=== PATIENT | female | born 1970 | race American Indian/Alaskan Native ===

== ENCOUNTER 2017-10-29 08:18 | Inpatient (IN) | payer OTHER ==
[2017-10-28 14:21] LABS: Basophils % (Auto) 0.8 % (0.0-1.8); Eosinophils % (Auto) 0.4 % (0.0-4.3); Hematocrit 41.6 % (30.3-42.9); Hemoglobin 13.7 gm/dl (10.1-14.3); Mean Corpuscular HGB Conc 33 % (30-34); Mean Corpuscular Hemoglobin 31 pg (28-32); Mean Corpuscular Volume 93 fl (79-97); Platelet Count 324 K/mm3 (140-440); Red Blood Count 4.46 M/mm3 (3.65-5.03); Red Cell Distribution Width 13.9 % (13.2-15.2); White Blood Count 7.9 K/mm3 (4.5-11.0)
[2017-10-29] MEDS ORDERED: NACL BACTERIOSTATIC INFILTRATI ONE (13:08)
[2017-10-29] MEDS ORDERED: VERSED IV NR (14:00)
--- NOTE | 2017-10-29 14:27 | History and Physical Report ---
History of Present Illness Date of examination: 10/29/17 Date of admission: 10/29/17 11:52 Chief complaint: My bleeding is heavy History of present illness: patient is a 46 year old G0 who presented to the office with the complaint of heavy menses during her annual exam. she was found to have a very large fibroid uterus that was confirmed on ultrasound. Patient sought definitive therapy. Past History Past Medical History: hypertension Past Surgical History: No surgical history Social history: single Family history: no significant family history Medications and Allergies Allergies Allergy/AdvReac Type Severity Reaction Status Date / Time aspirin Allergy Swelling Verified 10/22/17 15:25 Home Medications Medication Instructions Recorded Confirmed Last Taken Type No Known Home Medications [No 10/22/17 10/22/17 Unknown History Reported Home Medications] Active Meds: Active Medications Famotidine (Pepcid) 20 mg IV PREOP NR Stop: 10/29/17 23:00 Last Admin: 10/29/17 14:21 Dose: 20 mg Lactated Ringer's (Lactated Ringers) 1,000 mls @ 75 mls/hr IV DIRECT MERRITT Last Admin: 10/29/17 14:19 Dose: 75 mls/hr Midazolam HCl (Versed) 2 mg IV PREOP NR Stop: 10/29/17 23:59 Review of Systems All systems: negative - Constitutional fatigue - Breasts deferred - Gastrointestinal constipation, dyspepsia/bloating - Genitourinary Genitourinary: menorrhagia, urinary frequency, vaginal dryness Menstruation: period heavy - Psychiatric anxiety Exam Vital Signs Temp Pulse Resp BP Pulse Ox 98.3 F 77 18 151/93 100 10/29/17 12:45 10/29/17 12:45 10/29/17 12:45 10/29/17 12:45 10/29/17 12:45 - General physical appearance Positive: well developed, well nourished, no distress - Eyes Positive: PERRL, normal occular movement - ENT Positive: normal pinna, normal nares, normal mucosa, no hearing loss, no congestion - Neck Positive: no masses, no bruits, trachea midline, no venous distension - Respiratory Positive: normal expansion, normal respiratory effort, clear to auscultation - Extremities Extremities: no ischemia, pulses symmetrical, No edema - Breasts Breasts: deferred - Abdomen Abdomen: Present: soft, masses (just above the umbilicus) - Genitourinary Female Genitourinary: other (enlarged with multifibroid uterus) Results - Labs 10/28/17 13:30 Assessment and Plan 46 year old female here for supracervical dany for multifibroid uterus. Consents signed and on chart.
[2017-10-29] MEDS ORDERED: ANCEF/STERILE WATER 2 GM/20 ML 2 GM/20 ML SYRINGE IV NR (15:00)
[2017-10-29] MEDS ORDERED: LACTATED RINGERS 1,000 ML IV SCH (15:00)
[2017-10-29] MEDS ORDERED: PEPCID IV NR (15:00)
[2017-10-29] MEDS ORDERED: DIPRIVAN 10 MG/ML IV ONE (15:04)
[2017-10-29] MEDS ORDERED: DILAUDID ONE ×2 (15:04→17:52)
[2017-10-29] MEDS ORDERED: XYLOCAINE MPF 2% ONE (15:04)
[2017-10-29] MEDS ORDERED: ZEMURON IV ONE (15:05)
[2017-10-29] MEDS ORDERED: ACD-A 500 ML IV ONE (15:13)
[2017-10-29] MEDS ORDERED: METHYLENE BLUE ONE (15:13)
[2017-10-29] MEDS ORDERED: ZOFRAN ONE (16:11)
[2017-10-29] MEDS ORDERED: NACL 0.9% 100 ML ONE (16:14)
[2017-10-29] MEDS ORDERED: Vasostrict ONE (16:15)
[2017-10-29] MEDS ORDERED: NACL 0.9% IV ONE (16:18)
[2017-10-29] MEDS ORDERED: NACL 0.9% IR ONE (16:18)
[2017-10-29] MEDS ORDERED: Vasostrict IM ONE (16:18)
[2017-10-29] MEDS ORDERED: LACTATED RINGERS 1,000 ML ONE (16:32)
[2017-10-29] MEDS ORDERED: NACL 0.9% 1000 ML 2,000 ML ONE (16:39)
[2017-10-29] MEDS ORDERED: ROBINUL ONE (16:46)
[2017-10-29] MEDS ORDERED: NEOSTIGMINE ONE (16:46)
[2017-10-29] MEDS ORDERED: NEO SYNEPHRINE/NS Syringe(OR USE) IV ONE (17:00)
[2017-10-29] MEDS ORDERED: NARCAN 0.4 MG/1 ML IV PRN (17:36)
[2017-10-29] MEDS ORDERED: BENADRYL IV PRN (17:36)
[2017-10-29] MEDS ORDERED: ZOFRAN IV PRN (17:36)
[2017-10-29] MEDS ORDERED: PHENERGAN PR PRN (17:36)
--- NOTE | 2017-10-29 17:48 | Post Operative Note ---
Pre-op diagnosis: Uterine Fibroids Post-op diagnosis: same Findings: Severely enlarged multi-fibroid uterus, normal ovaries Procedure: Supracervical Hysterectomy, Abdominal approach Anesthesia: GETA Surgeon: LISA MULLER Mems Process Engineer: SUYAPA GANT Estimated blood loss: other (400) Pathology: list (uterus) Specimen disposition: to lab Condition: stable Disposition: PACU
--- NOTE | 2017-10-29 17:49 | Post Anesthesia Evaluation ---
- Post Anesthesia Evaluation Patient Participated: Yes Airway Patent: Yes Stable Respiratory Function: Yes Nausea/Vomiting: No Temp > 96.8F: Yes Pain Manageable: Yes Adequeate Hydration: Yes Anesthesia Complications: No
[2017-10-29] MEDS ORDERED: DILAUDID IV PRN (17:56)
[2017-10-29] MEDS ORDERED: NACL 0.9% 1000 ML 1,000 ML IV SCH (18:00)
[2017-10-29] MEDS ORDERED: DILAUDID PCA 6MG/30ML IV SCH (18:00)
[2017-10-29] MEDS ORDERED: TYLENOL PO PRN (20:38)
[2017-10-29] MEDS ORDERED: D5LR 1,000 ML IV SCH (20:38)
[2017-10-29] MEDS: TORADOL IV SCH (22:58)
[2017-10-29] MEDS: COLACE PO SCH (22:58)
[2017-10-30] MEDS: TORADOL IV SCH (03:34)
[2017-10-30 06:43] LABS: Hematocrit 37.5 % (30.3-42.9); Hemoglobin 12.6 gm/dl (10.1-14.3)
[2017-10-30] MEDS: PERCOCET 5/325 PO PRN ×2 (08:45→16:09)
[2017-10-30] MEDS: COLACE PO SCH ×2 (16:10→21:52)
[2017-10-30] MEDS: MILK OF MAGNESIA PO PRN (16:29)
[2017-10-30] MEDS ORDERED: AFRIN NS PRN (21:14)
[2017-10-30] MEDS: TORADOL IM SCH (21:51)
[2017-10-31] MEDS: TORADOL IM SCH ×3 (06:35→21:10)
--- NOTE | 2017-10-31 08:28 | Progress Note ---
Assessment and Plan POD 2 s/p SHAYNE Supracervical. Dong well except that patient complained of nausea after eating on yesterday. Patient was hoping to go home today so I advised patient that is she is able to eat a regular diet and keep it down as well as pass flatus that she could go on today. Subjective - Subjective Date of service: 10/31/17 Interval history: patient is a 46 year old G0 who presented to the office with the complaint of heavy menses during her annual exam. she was found to have a very large fibroid uterus that was confirmed on ultrasound. Patient sought definitive therapy. Patient reports: appetite normal, voiding normally, pain well controlled, nauseated Objective - Vital Signs Latest vital signs: Vital Signs Temp Pulse Resp BP 10/31/17 06:43 99.4 F 91 H 16 141/87 10/31/17 01:33 98.5 F 77 18 133/75 10/30/17 20:54 99.6 F 91 H 18 160/87 10/30/17 16:00 98.2 F 80 18 151/80 10/30/17 12:15 98.4 F 83 18 137/70 10/30/17 09:10 98.1 F 86 18 146/81 Intake and Output 10/30/17 10/31/17 10/31/17 22:59 06:59 14:59 Intake Total 120 220 Output Total 200 Balance 120 20 Intake: Oral 120 Intake, Free Water 220 Output: Urine 200 Void 200 Other: Total, Intake Amount 120 Total, Output Amount 200 # Voids Void 1 1 - Exam Cardiovascular: Present: Regular rate, Normal S1, Normal S2 Lungs: Present: Clear to auscultation, Normal air movement Abdomen: Present: normal appearance, soft, tenderness, normal bowel sounds Extremities: Present: normal Deep Tendon Reflex Grade: Normal +2 Incision: Present: normal, dry, intact
[2017-10-31 09:34] LABS: Hematocrit 36.7 % (30.3-42.9)
[2017-10-31] MEDS: PERCOCET 5/325 PO PRN (17:13)
[2017-10-31] MEDS: COLACE PO SCH (22:00)
[2017-11-01] MEDS: PERCOCET 5/325 PO PRN ×2 (00:18→08:56)
--- NOTE | 2017-11-01 08:12 | Discharge Summary ---
Providers - Providers Date of Admission: 10/29/17 11:52 Date of discharge: 11/01/17 Attending physician: LISA MULLER Primary care physician: BLOCK MECHANIC Hospitalization Reason for admission: other (fibroids) Procedure: other (SHAYNE-supracervical) Procedure details: see op report Incision: normal, dry, intact Discharge diagnosis: other (fibroids) Hospital course: unremarkable Condition at discharge: Good Disposition: DC-01 TO HOME OR SELFCARE Plan - Discharge Medications Prescriptions: Docusate Sodium [Colace] 100 mg PO BID PRN #60 capsule PRN Reason: Constipation Ibuprofen [Motrin] 800 mg PO Q8HR PRN #50 tablet PRN Reason: Pain Oxycodone HCl/Acetaminophen [Percocet 7.5/325 mg] 1 each PO Q6HR PRN #50 tablet PRN Reason: Pain - Provider Discharge Summary Activity: routine, no sex for 6 weeks, no heavy lifting 4 weeks, no strenuous exercise Diet: routine Instructions: routine Additional instructions: [] Smoking cessation referral if applicable(refer to patient education folder for contact #) [] Refer to [facility] Booklet Call your doctor immediately for: * Fever > 100.5 * Heavy vaginal bleeding ( >1 pad per hour) * Severe persistent headache * Shortness of breath * Reddened, hot, painful area to leg or breast * Drainage or odor from incision. * Keep incision clean and dry at all times and follow doctor's instructions regarding bathing/showering - Follow up plan Follow up: LISA MULLER MD [Staff Physician] - 7 Days
[2017-11-01] MEDS: MILK OF MAGNESIA PO PRN (08:57)
[2017-11-01] MEDS: COLACE PO SCH (12:43)
[2017-11-01 15:43] VITALS: BP 145/85
--- NOTE | 2017-11-12 03:55 | Operative Report ---
PREOPERATIVE DIAGNOSES: Uterine fibroids, menorrhagia. POSTOPERATIVE DIAGNOSES: Uterine fibroids, menorrhagia. PROCEDURE: Supracervical hysterectomy, abdominal approach. SURGEON: Adrianne Gordon MD NEURO OPHTHALMOLOGIST: Dr. Cathleen Carter. ESTIMATED BLOOD LOSS: 400 mL. IV FLUIDS: 1100 mL. URINE OUTPUT: 200 mL, clear at the end of the procedure. FINDINGS: Really enlarged multifibroid uterus. Normal ovaries. COMPLICATIONS: None. SPECIMENS: Large uterus, with right tube. DESCRIPTION OF PROCEDURE: The patient was taken to the OR with IV running in place. She was properly identified as herself. She was given general anesthesia without difficulty and placed in the dorsal supine position. A Snowden catheter was inserted. She was then prepped and draped in the normal sterile fashion. A Pfannenstiel incision was made with the scalpel and carried through to the underlying fascia using the scalpel and a Bovie. The fascia was incised in the midline and the fascial incision was extended bilaterally using the curved Mcbride scissors. The rectus muscles were then dissected from the overlying fascia with a series of sharp and blunt dissection. Rectus muscle was opened in the midline, they had some little diastasis present. The peritoneal cavity was entered into bluntly using the surgeon's fingers. On initial entry into the peritoneal cavity, it was noted that the uterus was extremely large. Using retractors, the uterus was anteverted and exteriorized through the incision revealing the large fibroids and all the anatomy. Attention was first turned to the patient's right side, where the round ligament was identified, was transected and cauterized using the LigaSure cautery device. At this point, the fibroids were injected with Pitressin solution, with Pitressin in normal saline to promote hemostasis. Attention was then turned to the patient's uteroovarian ligament, which was then cross-clamped, cauterized and transected as well. The uterine artery was then skeletonized and identified. At this point, Dr. Carter entered the procedure. He identified the round ligament on the left. It was identified, cauterized, and transected. He then identified the tube and uteroovarian artery and took it in one bite with Noel clamps, following which he transected and suture tied each end. He identified the uterine vessels on the left. They were then identified, clamped with Noel clamps, transected, and then suture ligated. At this point, the bladder flap was created anteriorly. Attention was turned back to the patient's right side. Uterine artery on the right side was identified, cauterized, to be grasped, transected, and then suture ligated as well as cauterized. At this point, we were at the level of the cervix, which was very small and using the long-handled scalpel, the body of the uterus was amputated from the cervix. The center of the cervix was then cauterized and the base was oversewn with sutures of 0 Vicryl. The uterus was then handed off to pathology. Following this, the bottom of the pelvis as well as the cuff was inspected and was found to be hemostatic. At this point, all instruments were removed from the patient's abdomen and pelvis. The muscles were reapproximated in the midline. The fascia was closed in a running fashion with 0 Vicryl and subcutaneous tissue was then closed with individual sutures of 0 Vicryl and the skin was closed with chiquis. The sponge, lap, needle, and instrument counts were correct x 2. The patient tolerated the procedure well and was taken to recovery in stable condition. JOB# [id number] JAKOB/LESLI HARE
== END 2017-11-01 15:00 | disposition home or self-care (01) | DRG 743 ==
LOC: EDSTATUS 09:30 → 3A 11:52 → OB 17:38
PROVIDERS: ADMIT Obstetrics & Gynecology; ATTEND Obstetrics & Gynecology
PROC: 0UT90ZL Resection of Uterus, Supracervical, Open Approach (ICD-10-PCS; principal; 2017-10-29)
PROC: 0UB50ZZ Excision of Right Fallopian Tube, Open Approach (ICD-10-PCS; 2017-10-29)
DX: D25.9 Leiomyoma of uterus, unspecified (principal); N92.0 Excessive and frequent menstruation with regular cycle; I10 Essential (primary) hypertension; Z88.6 Allergy status to analgesic agent
CPT/HCPCS: 36415; 84703; 85014; 85018; 85025; 86850; 86900; 86901; 88307; J0690; J1170; J1885; J2250; J2370; J2405; J2704; J2710; J7030; J7120; Q9968